=== PATIENT | female | born 1970 | race Caucasian/White ===

== ENCOUNTER 2023-10-12 06:33 | Day surgery (SDC) | payer OTHER ==
[~2023-10-12] VITALS: Ht 160 cm; Wt 93.1 kg
[2023-10-12] MEDS ORDERED: LIDOCAINE 4% 50 ML SOLUTION TP ONE (06:34)
[2023-10-12] MEDS ORDERED: ALBUTEROL SULFATE 2.5 MG/0.5 ML NEB SOLUTION NEB ONE (06:34)
[2023-10-12] MEDS ORDERED: LIDOCAINE 2% 11 ML JELLY TP ONE (06:34)
[2023-10-12] MEDS ORDERED: BENZOCAINE 20% 50 MCG/SPRAY 57 GM TP ONE (06:34)
[2023-10-12] MEDS ORDERED: SODIUM CHLORIDE 0.9% 1,000 ML ONE (06:38)
[2023-10-12] MEDS: SODIUM CHLORIDE 0.9% 1,000 ML IV ONE (07:27)
[2023-10-12] MEDS ORDERED: FentaNYL CITRATE PF 100 MCG/2 ML VIAL ONE (07:53)
[2023-10-12] MEDS ORDERED: MIDAZOLAM HCL 2 MG/2 ML VIAL ONE (07:53)
[2023-10-12 09:45] VITALS: PULSE 74; RESP 18; O2SAT 98
[2023-10-12] MEDS ORDERED: MethylPREDNISolone SOD SUCC 125 MG/2 ML VIAL ONE (09:47)
[2023-10-12] MEDS: MethylPREDNISolone SOD SUCC 125 MG/2 ML VIAL IVP ONE (10:37)
== END 2023-10-12 12:25 | disposition home or self-care (01) ==
LOC: SURGERY 06:33
PROVIDERS: ATTEND Internal Medicine Critical Care Medicine
DX: R05.3 Chronic cough (principal); J38.4 Edema of larynx; B37.0 Candidal stomatitis; R04.2 Hemoptysis; J98.09 Other diseases of bronchus, not elsewhere classified; J84.10 Pulmonary fibrosis, unspecified; J98.8 Other specified respiratory disorders; E78.00 Pure hypercholesterolemia, unspecified; K76.0 Fatty (change of) liver, not elsewhere classified; M47.814 Spondylosis without myelopathy or radiculopathy, thoracic region; Z85.21 Personal history of malignant neoplasm of larynx
CPT/HCPCS: 31623; 87206; 87101; 87220; 87070; 88108; 31624; 71045; 87015; J3010; J2250; J2919; J7030; J7613; Z7610